=== PATIENT | male | born 1955 | race Two or more races ===

== ENCOUNTER 2025-03-25 11:50 | Day surgery (SDC) | payer OTHER, MEDICAID, SELFPAY ==
[2025-03-24 11:43] VITALS: BMI 34.4
[2025-03-25] VITALS (9 sets, daily range): BP systolic 119–142; BP diastolic 68–88; PULSE 60; RESP 13–18; TEMP 36.6–36.7; O2SAT 94–98; BMI 33.0
[2025-03-25] MEDS: fentaNYL CIT INJ 50 mCg/ML AMP 2ML (ASD USE ONLY) IVP (13:38)
[2025-03-25] MEDS: MIDAZOLAM INJ 1 MG/ML VIAL 2 ML (ASD USE ONLY) 2 MG IVP (13:38)
[2025-03-25] MEDS: RINGERS LACTATED 1000 ML 1,000 ML 100 ML IV (13:38)
== END 2025-03-25 14:35 | disposition home or self-care (01) ==
PROVIDERS: PCP Family Medicine; Referring Provider Surgery; Visit Provider Surgery
PROC: 0DBE8ZX Excision of Large Intestine, Via Natural or Artificial Opening Endoscopic, Diagnostic (ICD-10-PCS; CPT 45380; principal; 2025-03-25 13:45)
DX: Z12.11 Encounter for screening for malignant neoplasm of colon (principal); K64.5 Perianal venous thrombosis; I10 Essential (primary) hypertension; Z95.0 Presence of cardiac pacemaker; Z86.73 Personal history of transient ischemic attack (TIA), and cerebral infarction without residual deficits; Z79.01 Long term (current) use of anticoagulants
CPT/HCPCS: 45378; A4649; J2250; J3010; J7120